=== PATIENT | male | born 1970 | race Caucasian/White ===

== ENCOUNTER → 2018-03-28 | Outpatient (CLI) | payer OTHER ==
[~2018-03-28] MED LIST: ADVIN25/60 INH; IPRA1AER2 INH
--- NOTE | 2018-03-28 18:14 | DIAGNOSTIC IMAGING REPORT ---
R VENOUS DOPP LOWER EXT UNILAT CLINICAL HISTORY: 47 years-old Male presenting with RIGHT LEG PAIN. TECHNIQUE: Real-time grayscale and color and spectral Doppler ultrasound imaging of the veins of the right lower extremity was performed. Compression and augmentation were also utilized. COMPARISON: None. FINDINGS: RIGHT: Common femoral vein: Patent. Greater saphenous vein: Patent. Deep femoral vein: Patent. Femoral vein: Patent. Popliteal vein: Patent. Calf veins: Patent. Other: None. IMPRESSION: No evidence of deep venous thrombosis. Electronically signed by: Lance Watkins M.D. 03/28/2018 6:13 PM Dictated Date/Time: 03/28/2018 6:13 PM
== END | disposition home or self-care (01) ==
LOC: C.ULTR 17:27
DX: S92.011A Displaced fracture of body of right calcaneus, initial encounter for closed fracture (principal); X58.XXXA Exposure to other specified factors, initial encounter

== ENCOUNTER → 2018-03-28 | Outpatient (CLI) | payer OTHER ==
--- NOTE | 2018-03-28 11:38 | DIAGNOSTIC IMAGING REPORT ---
CT RIGHT CALCANEUS CT DOSE: 160.84 mGy.cm CLINICAL HISTORY: Right heel pain. Trauma. TECHNIQUE: Helical images were acquired in the transverse plane. Sagittal and coronal reformatted images were acquired. A dose lowering technique was utilized adhering to the principles of ALARA. COMPARISON STUDY: None. FINDINGS: There is an extensively comminuted intra-articular calcaneal fracture. There is involvement of the subtalar joint and calcaneocuboid articulation. There is 10 mm of maximal fracture fragment distraction. IMPRESSION: Extensively comminuted Simmons type IV calcaneal fracture with 10 mm of maximal fracture fragment distraction. Electronically signed by: Georgi Mast M.D. 03/28/2018 11:37 AM Dictated Date/Time: 03/28/2018 11:26 AM
== END | disposition home or self-care (01) ==
LOC: C.CTS 11:08
DX: S92.001A Unspecified fracture of right calcaneus, initial encounter for closed fracture (principal); X58.XXXA Exposure to other specified factors, initial encounter